=== PATIENT | female | born 1965 | race Caucasian/White ===

== ENCOUNTER 2017-05-25 16:57 | Inpatient (IN) ==
--- NOTE | 2017-05-25 17:14 | Emergency Department Note ---
Disposition Clinical Impression: Depression Qualifiers: Depression Type: unspecified Qualified Code(s): F32.9 - Major depressive disorder, single episode, unspecified Disposition: Admitted As Inpatient Psych HPI - General Chief Complaint: ED Psychiatric Symptoms Stated Complaint: SI Time Seen by Provider: 05/25/17 17:08 Source: patient Mode of arrival: ambulatory Limitations: no limitations Nursing Notes Reviewed: Yes Vital Signs Reviewed: Yes - History of Present Illness HPI Narrative: 51-year-old female who has a history depression says she's had some worsening depression over the last several weeks with suicidal ideation now. Pt complaint: suicidal ideation, feels depressed If medical clearance, reason: psychiatric condition Onset (ago): Just [employer] Duration: constant History of similar episodes: Yes Improves with: none Worsens with: none Context: significant life stressor Alleged intoxication: No Associated Psychiatric Symptoms: depression, suicidal ideation Associated symptoms: Reports: denies other symptoms Traumatic symptoms: denies traumatic injury Treatments prior to arrival: none - Related Data Home Medications Medication Instructions Recorded Confirmed Albuterol Sulfate [Proair Hfa] 2 puff IH Q4H PRN 04/13/17 05/25/17 Gabapentin [Neurontin] 600 mg PO BID PRN 04/13/17 05/25/17 Montelukast [Singulair] 10 mg PO HS 04/13/17 05/25/17 Topiramate [Topamax] 100 mg PO BID 04/13/17 05/25/17 carBAMazepine [Tegretol] 200 mg PO BID 04/13/17 05/25/17 Acetaminophen [Tylenol] 650 mg PO Q6HR PRN 05/25/17 05/25/17 BuPROPion XL (24 HR) [Wellbutrin 150 mg PO DAILY 05/25/17 05/25/17 XL] Ipratropium/Albuterol Neb [Duoneb] 3 ml IH Q6H PRN 05/25/17 05/25/17 LORazepam [Ativan] 0.5 mg PO Q6H PRN 05/25/17 05/25/17 Protivin Carbonate 150 mg PO QPM 05/25/17 05/25/17 Protivin Carbonate [Protivin 300 mg PO QAM 05/25/17 05/25/17 Carbonate] Omeprazole [PriLOSEC] 20 mg PO DAILY 05/25/17 05/25/17 Ropinirole HCl [Requip Xl] 2 mg PO HS 05/25/17 05/25/17 Trazodone HCl 100 mg PO HS 05/25/17 05/25/17 Venlafaxine HCl [Venlafaxine HCl 75 mg PO DAILY 05/25/17 05/25/17 ER] Allergies Allergy/AdvReac Type Severity Reaction Status Date / Time codeine AdvReac Nausea/Vomi Verified 05/25/17 17:01 ting All systems ED: reviewed and negative except as stated. Constitutional: Denies: fever, chills, weakness, weight change Eyes: Denies: eye pain, eye discharge, vision change ENT ED: Denies: ear pain, throat pain, dental pain, hearing loss, epistaxis, congestion, dysphagia Cardiovascular: Denies: chest pain, palpitations, dyspnea on exertion, edema, syncope Respiratory: Denies: cough, dyspnea, wheezes, hemoptysis, stridor Gastrointestinal: Denies: abdominal pain, nausea, vomiting, diarrhea, constipation, hematemesis, melena, hematochezia Genitourinary: Denies: dysuria, frequency, hematuria, discharge Musculoskeletal: Denies: back pain, neck pain, arthralgia, myalgia Integumentary: Denies: rash, abrasion, lesions Neurological: Denies: headache, weakness, numbness, paresthesias, confusion, abnormal gait, vertigo Psychiatric: Reports: depression. Denies: anxiety, suicidal thoughts, homicidal thoughts, auditory hallucinations, visual hallucinations Endocrine: Denies: fatigue Hematological/Lymphatic: Denies: easy bleeding, easy bruising Allergic/Immunologic: Denies: facial swelling, urticaria Past Medical History - Past Medical History Medical history: Reports: no medical history Psychiatric history: Reports: anxiety, depression, prior suicide attempt, previous psychiatric hospitalization - Social History Smoking Status: Never smoker Smokeless Tobacco Status: No Alcohol use: Reports: occasionally Drug use: Reports: none Physical Exam - General Limitations: no limitations General appearance: alert, in no apparent distress, anxious - Head Head exam: atraumatic, normocephalic, normal inspection - Eye Eye exam: Present: normal appearance, PERRL, EOMI - ENT ENT exam: normal exam, normal oropharynx, mucous membranes moist - Neck Neck exam: Present: normal inspection, full ROM, trachea midline - Chest Chest inspection: Present: normal inspection, symmetric chest wall rise - Respiratory Respiratory exam: Present: normal lung sounds bilaterally - Abdominal Exam Abdominal exam: Present: soft, Non-Tender. Absent: tenderness, distention, guarding, rebound, rigidity - Extremities Exam Extremities exam: Present: normal inspection, full ROM. Absent: tenderness, pedal edema - Expanded Lower Extremity Exam Neurovascular/Tendon exam: Absent: motor deficit, sensory deficit, tendon deficit - Back Exam Back exam: Present: normal inspection, full ROM. Absent: tenderness - Neurological Exam Neurological exam: Present: alert, oriented X3 - Psychiatric Psychiatric exam: Present: depressed, suicidal ideation - Skin Skin exam: Present: warm, dry, intact, normal color Course Vital Signs Temperature 97.5 F L 05/25/17 16:58 Pulse Rate 86 05/25/17 16:58 Respiratory Rate 16 05/25/17 16:58 Blood Pressure 135/72 05/25/17 16:58 O2 Sat by Pulse Oximetry 100 05/25/17 16:58 Temperature 98.3 F 05/25/17 21:00 Pulse Rate 74 05/25/17 21:00 Respiratory Rate 16 05/25/17 21:00 Blood Pressure 134/74 05/25/17 21:00 O2 Sat by Pulse Oximetry 99 05/25/17 18:27 Oxygen Delivery Oxygen Delivery Room Air Psych - Lab Data Result diagrams: 05/25/17 17:21 05/25/17 17:21 Lab Results 05/25/17 05/25/17 05/25/17 Range/Units 17:21 17:21 17:21 WBC 7.3 (4.3-11.1) K/mcL RBC 4.51 (3.82-4.97) M/mcL Hgb 13.4 (11.5-15.4) g/dL Hct 42.0 (35.3-44.9) % MCV 93.1 (83.0-100.0) fL MCH 29.7 (28.0-33.3) pg MCHC 31.9 (31.6-35.5) g/dL RDW 12.8 (11.5-14.5) % Plt Count 246 (140-400) K/mcL MPV 11.4 (9.4-12.4) fL Immature Gran % 0.7 (0-4) % Seg Neutrophils % 58.7 % Lymphocytes % 25.4 % Monocytes % 9.7 % Eosinophils % 4.4 % Basophils % 1.1 % Neutrophils # 4.3 (1.6-8.9) K/mcL Lymphocytes # 1.8 (0.6-4.6) K/mcL Monocytes # 0.7 (0.0-1.3) K/mcL Eosinophils # 0.3 (0.0-0.6) K/mcL Basophils # 0.1 (0.0-0.2) K/mcL Sodium 140 (136-145) mEq/L Potassium 3.5 (3.5-4.5) mEq/L Chloride 110 H (98-109) mEq/L Carbon Dioxide 22 (19-29) mEq/L BUN 9 (7-20) mg/dL Creatinine 0.83 (0.57-1.11) mg/dL Est GFR ( Amer) > 60 (> 60) Est GFR (Non-Af Amer) > 60 (> 60) BUN/Creatinine Ratio 11 (6-26) Glucose 84 (70-99) mg/dL Calculated Osmolality 288 (280-300) Calcium 9.0 (8.6-10.8) mg/dL Serum , Qual Negative (Negative) Urine Color (Yellow) Urine Clarity (Clear) Urine pH (5.0-8.0) pH Units Ur Specific [place] (1.010-1.025) Urine Protein (Neg-Trace) mg/dL Urine Glucose (UA) (Normal) mg/dL Urine Ketones (Negative) mg/dL Urine Blood (Negative) Urine Nitrite (Negative) Urine Bilirubin (Negative) Urine Urobilinogen (Normal) mg/dL Ur Leukocyte Esterase (Negative) Salicylates < 5.0 L (15-30) mg/dL Urine Opiates Screen (Kkztjg=108) ng/mL Acetaminophen < 1.0 L (10-30) mcg/mL Ur Barbiturates Screen (Jetkxg=031) ng/mL Ur Phencyclidine Scrn (Cutoff=25) ng/mL Ur Amphetamines Screen (Ydeeap=2459) ng/mL U Benzodiazepines Scrn (Kmebna=358) ng/mL Protivin (0.6-1.2) mEq/L Urine Cocaine Screen (Cutoff= 300) ng/mL U Marijuana (THC) Screen (Cutoff = 50) ng/mL Ethyl Alcohol < 10 (0-10) mg/dL 05/25/17 05/25/17 05/25/17 Range/Units 18:05 18:05 20:09 WBC (4.3-11.1) K/mcL RBC (3.82-4.97) M/mcL Hgb (11.5-15.4) g/dL Hct (35.3-44.9) % MCV (83.0-100.0) fL MCH (28.0-33.3) pg MCHC (31.6-35.5) g/dL RDW (11.5-14.5) % Plt Count (140-400) K/mcL MPV (9.4-12.4) fL Immature Gran % (0-4) % Seg Neutrophils % % Lymphocytes % % Monocytes % % Eosinophils % % Basophils % % Neutrophils # (1.6-8.9) K/mcL Lymphocytes # (0.6-4.6) K/mcL Monocytes # (0.0-1.3) K/mcL Eosinophils # (0.0-0.6) K/mcL Basophils # (0.0-0.2) K/mcL Sodium (136-145) mEq/L Potassium (3.5-4.5) mEq/L Chloride (98-109) mEq/L Carbon Dioxide (19-29) mEq/L BUN (7-20) mg/dL Creatinine (0.57-1.11) mg/dL Est GFR ( Amer) (> 60) Est GFR (Non-Af Amer) (> 60) BUN/Creatinine Ratio (6-26) Glucose (70-99) mg/dL Calculated Osmolality (280-300) Calcium (8.6-10.8) mg/dL Serum , Qual (Negative) Urine Color Yellow (Yellow) Urine Clarity Clear (Clear) Urine pH 7.5 (5.0-8.0) pH Units Ur Specific [place] 1.008 L (1.010-1.025) Urine Protein Negative (Neg-Trace) mg/dL Urine Glucose (UA) Normal (Normal) mg/dL Urine Ketones Negative (Negative) mg/dL Urine Blood Negative (Negative) Urine Nitrite Negative (Negative) Urine Bilirubin Negative (Negative) Urine Urobilinogen Normal (Normal) mg/dL Ur Leukocyte Esterase Negative (Negative) Salicylates (15-30) mg/dL Urine Opiates Screen Negative (Ksxxzx=559) ng/mL Acetaminophen (10-30) mcg/mL Ur Barbiturates Screen Negative (Lfnpjv=304) ng/mL Ur Phencyclidine Scrn Negative (Cutoff=25) ng/mL Ur Amphetamines Screen Negative (Vpzfol=0677) ng/mL U Benzodiazepines Scrn Negative (Yjdbkw=537) ng/mL Protivin 0.6 (0.6-1.2) mEq/L Urine Cocaine Screen Negative (Cutoff= 300) ng/mL U Marijuana (THC) Screen Negative (Cutoff = 50) ng/mL Ethyl Alcohol (0-10) mg/dL Psychiatric Medical Clearance - Medical Clearance Checklist Does the patient have a NEW psychiatric condition?: No Any abnormalities indicating possible medical illness?: No Any history of medical issues?: No Medical History: (This Medical Record has been edited. Action required.) Depression (Acute) Acute anxiety (Inactive) Depression (Inactive) Suicidal ideation (Inactive) Suicide attempt by substance overdose (Inactive) (This Medical Record has been edited. Action required.) No Social History Section defined Any abnormal vital signs prior to transfer?: No Current Vitals: Last Vital Signs Temp 98.3 F 05/25/17 21:00 Pulse 74 05/25/17 21:00 Resp 16 05/25/17 21:00 BP 134/74 05/25/17 21:00 Pulse Ox 99 05/25/17 18:27 Is the patient intoxicated or cognitively impaired?: No Psychiatric Lab Panel: Drug Levels and Toxicity 05/25/17 05/25/17 05/25/17 17:21 18:05 20:09 Urine Opiates Screen Negative Acetaminophen < 1.0 L Ur Barbiturates Screen Negative Ur Phencyclidine Scrn Negative Ur Amphetamines Screen Negative U Benzodiazepines Scrn Negative Protivin 0.6 Urine Cocaine Screen Negative U Marijuana (THC) Screen Negative Ethyl Alcohol < 10 Any abnormalities on the physical exam?: No Any abnormal labs?: No Abnormal Labs: Abnormal lab results Chloride 110 mEq/L (98-109) H 05/25/17 17:21 Ur Specific [place] 1.008 (1.010-1.025) L 05/25/17 18:05 Salicylates < 5.0 mg/dL (15-30) L 05/25/17 17:21 Acetaminophen < 1.0 mcg/mL (10-30) L 05/25/17 17:21 Does the patient require durable medical equiptment?: No Is the patient ambulatory?: Yes Is the patient a fall risk?: No Has the patient been medically cleared?: Yes Any acute medical condition require Tx prior to transfer?: No Statement of Medical Clearance: I have evaluated the patient, reviewed diagnostic information, and certify that the patient's medical condition is sufficiently stable that transfer to the psychiatric unit does not pose a significant risk of deterioration.
[2017-05-25 17:32] LABS: Basophils # 0.1 K/mcL (0.0-0.2); Basophils % 1.1 %; Eosinophils # 0.3 K/mcL (0.0-0.6); Eosinophils % 4.4 %; Hemoglobin 13.4 g/dL (11.5-15.4); Immature Granulocytes % 0.7 % (0-4); Lymphocytes # 1.8 K/mcL (0.6-4.6); Lymphocytes % 25.4 %; Mean Corpuscular HGB Conc 31.9 g/dL (31.6-35.5); Mean Corpuscular Hemoglobin 29.7 pg (28.0-33.3); Mean Corpuscular Volume 93.1 fL (83.0-100.0); Mean Platelet Volume 11.4 fL (9.4-12.4); Monocytes # 0.7 K/mcL (0.0-1.3); Monocytes % 9.7 %; Neutrophils # 4.3 K/mcL (1.6-8.9); Platelet Count 246 K/mcL (140-400); Red Blood Count 4.51 M/mcL (3.82-4.97); Red Cell Distribution Width 12.8 % (11.5-14.5); Segmented Neutrophils % 58.7 %
[2017-05-25 17:48] LABS: BUN/Creatinine Ratio 11 (6-26); Blood Urea Nitrogen 9 mg/dL (7-20); Carbon Dioxide 22 mEq/L (19-29); Chloride 110 mEq/L (98-109); Glucose 84 mg/dL (70-99); Osmolality,Calculated 288 (280-300); Potassium 3.5 mEq/L (3.5-4.5); Sodium 140 mEq/L (136-145); eGFR For African Americans > 60 (> 60); eGFR For Non-African Americans > 60 (> 60)
[2017-05-25 17:49] LABS: Acetaminophen < 1.0 mcg/mL (10-30); Ethanol < 10 mg/dL (0-10)
[2017-05-25 17:50] LABS: Salicylate < 5.0 mg/dL (15-30)
[2017-05-25 18:34] LABS: Bilirubin,Urine Negative (Negative); Blood,Urine Negative (Negative); Clarity,Urine Clear (Clear); Color,Urine Yellow (Yellow); Glucose,Urine (UA) Normal (Normal); Ketones,Urine Negative (Negative); Leukocyte Esterase,Urine Negative (Negative); Nitrite,Urine Negative (Negative); PH,Urine 7.5 pH Units (5.0-8.0); Protein,Urine Negative (Neg-Trace); Specific Gravity,Urine 1.008 (1.010-1.025); Urobilinogen,Urine Normal (Normal)
[2017-05-25 18:40] LABS: Amphetamine Screen,Urine Negative ng/mL (Cutoff=1000); Barbiturate Screen,Urine Negative ng/mL (Cutoff=200); Benzodiazepines Screen,Urine Negative ng/mL (Cutoff=200); Cannabinoid Screen,Urine Negative ng/mL (Cutoff = 50); Cocaine Screen,Urine Negative ng/mL (Cutoff= 300); Opiate Screen,Urine Negative ng/mL (Cutoff=300); Phencyclidine Screen,Urine Negative ng/mL (Cutoff=25)
[2017-05-25] MEDS ORDERED: Ipratropium/Albuterol Neb 3 ML IH PRN (20:35)
[2017-05-25] MEDS ORDERED: Gabapentin 300 MG CAPSULE PO PRN (20:35)
[2017-05-25] MEDS ORDERED: Mag Hydrox/Al Hydrox/Simeth 30 ML UDC PO PRN (20:38)
[2017-05-25] MEDS ORDERED: traZODone 50 MG TABLET PO PRN (20:38)
[2017-05-25] MEDS ORDERED: *HR* LORazepam 1 MG TABLET PO PRN (20:38)
[2017-05-25] MEDS ORDERED: Acetaminophen 325 MG TABLET PO PRN (20:38)
[2017-05-25] MEDS ORDERED: MOM Conc 10 ML UD.LIQ PO PRN (20:38)
[2017-05-25] MEDS ORDERED: Haloperidol Lactate 5 MG/ML VIAL IM PRN (20:38)
[2017-05-25] MEDS ORDERED: *HR* LORazepam 2 MG/ML VIAL IM PRN (20:38)
[2017-05-25] MEDS ORDERED: Lithium Oral Soln 300 MG/5 ML UDC PO SCH (20:45)
[2017-05-25] MEDS: traZODone 50 MG TABLET PO SCH (21:54)
[2017-05-25] MEDS: carBAMazepine 200 MG TABLET PO SCH (21:54)
[2017-05-25] MEDS: Topiramate 100 MG TABLET PO SCH (21:54)
[2017-05-25] MEDS: REQUIP 2 MG PO SCH (21:56)
[2017-05-25] MEDS: *HR* LORazepam 0.5 MG TABLET PO PRN (23:29)
[2017-05-26] MEDS: Lithium Carbonate 300 MG CAPSULE PO SCH (08:28)
[2017-05-26] MEDS: Venlafaxine XR (24 HR) 75 MG CAP.ER.24H PO SCH (08:28)
[2017-05-26] MEDS: Topiramate 100 MG TABLET PO SCH ×2 (08:28→20:28)
[2017-05-26] MEDS: BuPROPion XL (24 HR) 150 MG TABLET PO SCH (08:28)
[2017-05-26] MEDS: carBAMazepine 200 MG TABLET PO SCH ×2 (08:29→20:27)
--- NOTE | 2017-05-26 10:35 | Psychiatry History & Physical ---
Date of Encounter: 05/26/17 Time of Encounter: 09:45 History of Present Illness Patient Stated Chief Complaint: Suicidal ideation Medicare Admission Attestation: For traditional Medicare patients the provided hospital inpatient services are reasonable and necessary and in the case of services not specified as inpatient -only under 42 CFR 419.22 (n), that they are appropriately provided as inpatient services in accordance 42 CFR 412.3. For Critical Access Hospital the patient may reasonably be expected to be discharged or transferred to a hospital within 96 hours after admission to the Critical Access Hospital. Admitted From: Emergency Dept History of Present Illness: Ms. Barraza is a 51 year old female admitted from the emergency department for suicidal ideation with plans to crash her car into a tree. Patient had long history of depression and treatment. Most recently patient was evaluated on and placed in [facility], her medication were changed their, Wellbutrin was added, Effexor dose was reduced and lithium was added. [place] level checked therapeutic at 0.6. Patient also is taken Topamax and carbamazepine by neurology for treatment of headache. She has surgery in 2004 for Meniere disease and problems with balance. Patient reports increased sleep , low energy, no motivation, anhedonia and suicidal ideation. She is treated at [facility] and compliant with appointment for counseling and medication management. Past Med Surg Social Fam HX - Past Medical History Medical history: no medical history - Past Psychiatric History Psychiatric history: Reports: depression, prior suicide attempt, previous psychiatric hospitalization - Past Surgical History Surgical History: cholecystectomy - Social History Smoking Status: Never smoker Smokeless Tobacco Status: No Alcohol use: occasionally Drug use: none Medications & Allergies Albuterol Sulfate [Proair Hfa] 2 puff IH Q4H PRN 04/13/17 [History] Gabapentin [Neurontin] 600 mg PO BID PRN 04/13/17 [History] Montelukast [Singulair] 10 mg PO HS 04/13/17 [History] Topiramate [Topamax] 100 mg PO BID 04/13/17 [History] carBAMazepine [Tegretol] 200 mg PO BID 04/13/17 [History] Acetaminophen [Tylenol] 650 mg PO Q6HR PRN 05/25/17 [History] BuPROPion XL (24 HR) [Wellbutrin XL] 150 mg PO DAILY 05/25/17 [History] Ipratropium/Albuterol Neb [Duoneb] 3 ml IH Q6H PRN 05/25/17 [History] LORazepam [Ativan] 0.5 mg PO Q6H PRN 05/25/17 [History] [place] Carbonate 150 mg PO QPM 05/25/17 [History] [place] Carbonate [[place] Carbonate] 300 mg PO QAM 05/25/17 [History] Omeprazole [PriLOSEC] 20 mg PO DAILY 05/25/17 [History] Ropinirole HCl [Requip Xl] 2 mg PO HS 05/25/17 [History] Trazodone HCl 100 mg PO HS 05/25/17 [History] Venlafaxine HCl [Venlafaxine HCl ER] 75 mg PO DAILY 05/25/17 [History] 3 Allergy/AdvReac Type Severity Reaction Status Date / Time codeine AdvReac Nausea/Vomi Verified 05/25/17 17:01 liz Review of Systems Psychiatric: Reports: depression, anxiety, abnormal sleep pattern, suicidal ideation, anhedonia Mental Status Exam Patient orientation: Yes Person, Yes Time, Yes Place Level of alertness: Alert Patient appearance: Appropriate, Well Groomed, Obese Behavior: calm, cooperative Psychomotor activity: Normal Eye contact: Maintains Eye Contact Mood description: Euthymic/stable, Depressed, Labile Affect description: congruent with mood, labile Speech pattern: Normal rate, Normal rhythm, Normal tone, Appropriate Speech volume: Normal Thought process: Linear, Goal Oriented Thought content: Yes Suicidal ideation, No Homicidal ideation, No Overt delusions Perceptual disturbances: No Auditory hallucinations, No Visual hallucinations Attention span: Capable of Focused Attention Memory description: Grossly Intact Patient reliability: Reliable Historian Intelligence estimate: Average Judgment: Limited Insight: Partial Results - Vital Signs Vital signs: Temp Pulse Resp BP Pulse Ox 97.8 F 69 18 109/63 99 05/26/17 09:00 05/26/17 09:00 05/26/17 09:00 05/26/17 09:00 05/25/17 18:27 - Labs Labs: Laboratory Last Values WBC 7.3 K/mcL (4.3-11.1) 05/25/17 17:21 RBC 4.51 M/mcL (3.82-4.97) 05/25/17 17:21 Hgb 13.4 g/dL (11.5-15.4) 05/25/17 17:21 Hct 42.0 % (35.3-44.9) 05/25/17 17:21 MCV 93.1 fL (83.0-100.0) 05/25/17 17:21 MCH 29.7 pg (28.0-33.3) 05/25/17 17:21 MCHC 31.9 g/dL (31.6-35.5) 05/25/17 17:21 RDW 12.8 % (11.5-14.5) 05/25/17 17:21 Plt Count 246 K/mcL (140-400) 05/25/17 17:21 MPV 11.4 fL (9.4-12.4) 05/25/17 17:21 Immature Gran % 0.7 % (0-4) 05/25/17 17: Seg Neutrophils % 58.7 % 05/25/17 17:21 Lymphocytes % 25.4 % 05/25/17 17:21 Monocytes % 9.7 % 05/25/17 17:21 Eosinophils % 4.4 % 05/25/17 17:21 Basophils % 1.1 % 05/25/17 17:21 Neutrophils # 4.3 K/mcL (1.6-8.9) 05/25/17 17:21 Lymphocytes # 1.8 K/mcL (0.6-4.6) 05/25/17 17:21 Monocytes # 0.7 K/mcL (0.0-1.3) 05/25/17 17:21 Eosinophils # 0.3 K/mcL (0.0-0.6) 05/25/17 17:21 Basophils # 0.1 K/mcL (0.0-0.2) 05/25/17 17:21 Sodium 140 mEq/L (136-145) 05/25/17 17:21 Potassium 3.5 mEq/L (3.5-4.5) 05/25/17 17:21 Chloride 110 mEq/L (98-109) H 05/25/17 17:21 Carbon Dioxide 22 mEq/L (19-29) 05/25/17 17:21 BUN 9 mg/dL (7-20) 05/25/17 17:21 Creatinine 0.83 mg/dL (0.57-1.11) 05/25/17 17:21 Est GFR ( Amer) > 60 (> 60) 05/25/17 17:21 Est GFR (Non-Af Amer) > 60 (> 60) 05/25/17 17:21 BUN/Creatinine Ratio 11 (6-26) 05/25/17 17:21 Glucose 84 mg/dL (70-99) 05/25/17 17:21 Calculated Osmolality 288 (280-300) 05/25/17 17:21 Calcium 9.0 mg/dL (8.6-10.8) 05/25/17 17:21 Serum , Qual Negative (Negative) 05/25/17 17:21 Urine Color Yellow (Yellow) 05/25/17 18:05 Urine Clarity Clear (Clear) 05/25/17 18:05 Urine pH 7.5 pH Units (5.0-8.0) 05/25/17 18:05 Ur Specific [place] 1.008 (1.010-1.025) L 05/25/17 18:05 Urine Protein Negative mg/dL (Neg-Trace) 05/25/17 18:05 Urine Glucose (UA) Normal mg/dL (Normal) 05/25/17 18:05 Urine Ketones Negative mg/dL (Negative) 05/25/17 18:05 Urine Blood Negative (Negative) 05/25/17 18:05 Urine Nitrite Negative (Negative) 05/25/17 18:05 Urine Bilirubin Negative (Negative) 05/25/17 18:05 Urine Urobilinogen Normal mg/dL (Normal) 05/25/17 18:05 Ur Leukocyte Esterase Negative (Negative) 05/25/17 18:05 Salicylates < 5.0 mg/dL (15-30) L 05/25/17 17:21 Urine Opiates Screen Negative ng/mL (Fjfxwm=852) 05/25/17 18:05 Acetaminophen < 1.0 mcg/mL (10-30) L 05/25/17 17:21 Ur Barbiturates Screen Negative ng/mL ([place]=039) 05/25/17 18:05 Ur Phencyclidine Scrn Negative ng/mL (Cutoff=25) 05/25/17 18:05 Ur Amphetamines Screen Negative ng/mL (Tpbdxc=5573) 05/25/17 18:05 U Benzodiazepines Scrn Negative ng/mL (Fdlcsd=056) 05/25/17 18:05 [place] 0.6 mEq/L (0.6-1.2) 05/25/17 20:09 Urine Cocaine Screen Negative ng/mL (Cutoff= 300) 05/25/17 18:05 U Marijuana (THC) Screen Negative ng/mL (Cutoff = 50) 05/25/17 18:05 Ethyl Alcohol < 10 mg/dL (0-10) 05/25/17 17:21 Assessment and Plan (1) Depression Current visit: Yes Status: Acute Plan: Admit inpatient for safety and stabilization, Close observation, Suicide Precautions per unit protocol, Encourage participation in unit milieu, Group Therapy, Monitor sleep, Monitor appetite Additional Plan: Discontinue trazodone. Check Tegretol level in a.m. Qualifiers: Depression Type: major depressive disorder Major depression recurrence: recurrent Active/Remission status: currently active Major depression episode severity: severe Psychotic features: without psychotic features Qualified Code(s): F33.2 - Major depressive disorder, recurrent severe without psychotic features
[2017-05-26] MEDS: traZODone 50 MG TABLET PO SCH (20:27)
[2017-05-26] MEDS: REQUIP 2 MG PO SCH (20:30)
[2017-05-26] MEDS: Lithium Oral Soln 300 MG/5 ML UDC PO SCH (20:39)
[2017-05-27] MEDS: BuPROPion XL (24 HR) 150 MG TABLET PO SCH (08:32)
[2017-05-27] MEDS: Venlafaxine XR (24 HR) 75 MG CAP.ER.24H PO SCH (08:32)
[2017-05-27] MEDS: Topiramate 100 MG TABLET PO SCH ×2 (08:32→21:14)
[2017-05-27] MEDS: carBAMazepine 200 MG TABLET PO SCH ×2 (08:33→21:14)
[2017-05-27] MEDS: Lithium Carbonate 300 MG CAPSULE PO SCH (08:33)
[2017-05-27] MEDS ORDERED: Lithium Carbonate 300 MG CAPSULE PO SCH (13:03)
--- NOTE | 2017-05-27 13:24 | Psychiatry Progress Note ---
Date of Encounter: 05/27/17 Time of Encounter: 13:15 Subjective Interval history: Patient seen for follow-up. Treatment history was reviewed with patient. She reports sleeping less and more alert and active. She participated in groups. She told me she had a history of gambling addiction. She denies active suicidal ideation. She was educated about MOOD disorders and medication. Review of Systems Psychiatric: Reports: depression, anxiety, abnormal sleep pattern, suicidal ideation, anhedonia Objective: Exam Patient orientation: Yes Person, Yes Time, Yes Place Level of alertness: Alert Patient appearance: Appropriate, Well Groomed Behavior: calm, cooperative, anxious Psychomotor activity: Normal Eye contact: Maintains Eye Contact Mood description: Euthymic/stable, Depressed, Labile Affect description: congruent with mood, labile Speech pattern: Normal rate, Normal rhythm, Normal tone Speech volume: Normal Thought process: Linear, Goal Oriented Thought content: No Suicidal ideation, No Homicidal ideation, No Overt delusions Perceptual disturbances: No Auditory hallucinations, No Visual hallucinations Judgment: Fair Insight: Partial Results - Vital Signs Vital Signs: Temp Pulse Resp BP Pulse Ox 97.3 F L 88 16 115/57 99 05/27/17 09:00 05/27/17 09:00 05/27/17 09:00 05/27/17 09:00 05/25/17 18:27 - Drug Levels and Toxicology Drug Levels and Toxicology: Drug Levels and Toxicity 05/27/17 10:07 Carbamazepine 5.7 - Labs Labs: Laboratory Results - last 24 hr 05/27/17 10:07 Carbamazepine 5.7 Assessment and Plan (1) Depression Current visit: Yes Status: Acute Plan: Continue hospitalization, Close observation, Suicide Precautions per unit protocol, Encourage participation in unit milieu, Group Therapy, Monitor sleep, Monitor appetite Additional Plan: will discontinue lithium Qualifiers: Depression Type: major depressive disorder Major depression recurrence: recurrent Active/Remission status: currently active Major depression episode severity: severe Psychotic features: without psychotic features Qualified Code(s): F33.2 - Major depressive disorder, recurrent severe without psychotic features Consult Discharge Plan - Plan Referrals: [facility], [facility] [Other] (You will see Mildred Stinson for primary health care and medication management services on You will see Odalys Orellana for outpatient psychiatric assessment and medication management services on 07/28/2017 at 10:00am. You are on the cancellation list to be seen sooner. Office staff expect to be able to move your appointment up, and will contact you when they are able to do so.) [facility] [Outside] - 06/03/17 11:00 am (The above appointment is with Anyi Aguirre, PhD, for outpatient mental health counseling services. You will also see Odalys Orellana for outpatient psychiatric assessment and medication management services on 06/15/2017 at 9:00 AM in the same office.)
[2017-05-27] MEDS: REQUIP 2 MG PO SCH (18:49)
[2017-05-27] MEDS: Lithium Oral Soln 300 MG/5 ML UDC PO SCH (21:13)
[2017-05-28] MEDS: carBAMazepine 200 MG TABLET PO SCH (09:19)
[2017-05-28] MEDS: BuPROPion XL (24 HR) 150 MG TABLET PO SCH (09:19)
[2017-05-28] MEDS: Topiramate 100 MG TABLET PO SCH (09:20)
[2017-05-28] MEDS: Venlafaxine XR (24 HR) 75 MG CAP.ER.24H PO SCH (09:20)
[2017-05-28 10:03] VITALS: BP 120/78
[2017-05-28] MEDS: *HR* LORazepam 0.5 MG TABLET PO PRN (12:17)
--- NOTE | 2017-05-28 12:57 | Discharge Summary ---
Date of Encounter: 05/28/17 Time of Encounter: 11:55 Diagnosis - Discharge Diagnosis (1) MDD (major depressive disorder), recurrent severe, without psychosis Priority: Primary Status: Acute Medications - Discharge Medications LORazepam [Ativan] 0.5 mg PO Q6H PRN 05/25/17 [History] Albuterol Sulfate [Albuterol Inhaler] 2 puff IH Q4H PRN inhaler 05/28/17 [Rx] BuPROPion XL (24 HR) [Wellbutrin Xl] 150 mg PO DAILY tab.er.24h 05/28/17 [Rx] Gabapentin [Neurontin] 600 mg PO BID PRN capsule 05/28/17 [Rx] Ipratropium/Albuterol Neb [Duoneb] 3 ml IH Q6H PRN inhsol 05/28/17 [Rx] Montelukast [Singulair] 10 mg PO HS tablet 05/28/17 [Rx] Omeprazole [PriLOSEC] 20 mg PO 0630 capsule. 05/28/17 [Rx] Topiramate [Topamax] 100 mg PO BID tablet 05/28/17 [Rx] Venlafaxine XR (24 HR) [Effexor XR] 75 mg PO DAILY cap.er.24h 05/28/17 [Rx] carBAMazepine [Tegretol] 200 mg PO BID tablet 05/28/17 [Rx] 3 Allergy/AdvReac Type Severity Reaction Status Date / Time codeine AdvReac Nausea/Vomi Verified 05/25/17 17:01 ting Results Procedures and tests throughout hospitalization: Completed Lab Orders Category Date Time Status Carbamazepine (Tegretol) AM 0400 Lab 05/27/17 10:07 Completed Provider Date of admission: 05/25/17 20:31 Primary care physician: PCP NONE Consults: 05/25/17 21:33 Consult to Pastoral Services [CONS] Routine Comment: Discharging clinician: Shanda Kim Assessment and Plan - Patient/Caregiver Discharge Instructions Activity: resume usual activities as tolerated Diet: regular diet - Follow up Plan Follow up with: [facility] [Other] (You will see Mildred Stinson for primary health care and medication management services on You will see Odalys Orellana for outpatient psychiatric assessment and medication management services on 07/28/2017 at 10:00am. You are on the cancellation list to be seen sooner. Office staff expect to be able to move your appointment up, and will contact you when they are able to do so.) [facility] [Outside] - 06/03/17 11:00 am (The above appointment is with Anyi Aguirre, PhD, for outpatient mental health counseling services. You will also see Odalys Orellana for outpatient psychiatric assessment and medication management services on 06/15/2017 at 9:00 AM in the same office.) Overall status at discharge: Stable Disposition: Home, Self-Care Hospital Course Hospital course: Ms. Barraza is a 51 year old female who was referred for hospitalization for depression and hopelessness helplessness and suicidal ideations. After admitting the patient and explained that his benefits side effects alternative treatment consequences of no treatment and getting informed consent from the patient patient was treated with Effexor Wellbutrin Tegretol Neurontin for her depression and mood stabilization and anxiety. Her lithium was tapered and discontinued. Patient was encouraged to attend and participate in groups and activities on the unit which included supportive therapy psychoeducational cognitive restructuring stress management groups etc. Patient started to notice improvement in her mood. Suicidal ideation subsided. She was able to verbalize a safety plan. She was future oriented and denies any psychotic manic or depressive symptoms on discharge. Overall her discharge condition was stable. Time spent discussing smoking cessation with patient: 3 to 10 minutes Does patient wish to continue nicotine replacement upon disc: No - Time Spent with Patient Total time spent providing and/or coordinating discharge services: Less than 30 minutes Quality - Multiple Antipsychotics Patient discharged on 2 or more antipsychotic medications: No Procedures - Procedures Procedures: Medication Management, Crisis Stabilization, Supportive Therapy, Group Therapy, Psychoeducational Therapy Mental Status Exam - Mental Status Exam Patient orientation: Yes Person, Yes Time, Yes Place Level of alertness: Alert Patient appearance: Appropriate, Well Groomed Behavior: calm, cooperative Psychomotor activity: Normal Eye contact: Maintains Eye Contact Mood description: Euthymic/stable Affect description: congruent with mood, full range Speech pattern: Normal rate, Normal rhythm, Normal tone Speech Volume: Normal Thought process: Linear, Goal Oriented Thought Content: No Suicidal ideation, No Homicidal ideation, No Overt delusions Perceptual Disturbances: No Auditory hallucinations, No Visual hallucinations Judgment: Limited Insight: Partial
[2017-05-28] MEDS ORDERED: Patient Taking Own Medication 1 EACH PO SCH (18:00)
== END 2017-05-28 15:02 | disposition home or self-care (01) | DRG 885 ==
LOC: EMEROO 16:57 → SUATTDRO 20:31 → 1ANU 20:31
PROVIDERS: ADMIT Psychiatry & Neurology Psychiatry; ATTEND Psychiatry & Neurology Psychiatry

== ENCOUNTER 2018-12-15 04:00 | Inpatient (IN) ==
[2018-12-15] MEDS ORDERED: *HR* LORazepam 1 MG TABLET PO PRN (04:11)
[2018-12-15] MEDS ORDERED: Haloperidol Lactate 5 MG/ML VIAL IM PRN (04:11)
[2018-12-15] MEDS ORDERED: Mag Hydrox/Al Hydrox/Simeth 30 ML UDC PO PRN (04:11)
[2018-12-15] MEDS ORDERED: *HR* LORazepam 2 MG/ML VIAL IM PRN (04:11)
[2018-12-15] MEDS ORDERED: MOM Conc 10 ML UD.LIQ PO PRN (04:11)
[2018-12-15] MEDS: Acetaminophen 325 MG TABLET PO PRN ×3 (09:19→21:09)
--- NOTE | 2018-12-15 10:29 | Psychiatry History & Physical ---
Date of Encounter: 12/15/18 Time of Encounter: 10:14 History of Present Illness Patient Stated Chief Complaint: suicidal ideation/psychosis Medicare Admission Attestation: For traditional Medicare patients the provided hospital inpatient services are reasonable and necessary and in the case of services not specified as inpatient-only under 42 CFR 419.22 (n), that they are appropriately provided as inpatient services in accordance 42 CFR 412.3. For Critical Access Hospital the patient may reasonably be expected to be discharged or transferred to a hospital within 96 hours after admission to the Critical Access Hospital. Admitted From: Home Plans for Post Hospital Care: Home History of Present Illness: Ms. Barraza is a 53 year old female who was admitted secondary to command hallucinations telling her to harm herself. Client states she started hearing voices (her own voice) after her mother in 2017. She reports the voice comes and goes and that there is no specific trigger. This time client reports the voice started up again approximately three weeks ago. Client states she was hospitalized in [place] and started on Loxapine for this voice. Client states the medication helped and that her outpatient psychiatrist tapered her off of it three months ago to see if she would do well off of it. Client wants to restart an antipsychotic now that the voice has returned. Client reports three prior hospitalizations, all since 2017. Three suicide attempts via overdose. One attempt was as a teenager but the other two have been since 2017. Client is linked with [facility] for outpatient care. Physically she is treated for Asthma and Menieres Disease. NKDA but opiates give her nausea. Client states mental illness runs in her family and that her father was hospitalized multiple times for suicide attempts. She is unaware of any completed suicides in family members. Client denies any AOD use beyond occasional alcohol. Client takes Effexor and Wellbutrin for depression. Willing to take a different antipsychotic since [place] does not stock Loxapine. Since client responds to older agents will try something like Trilafon to start. Discussed risks and benefits and client is agreeable. Client does not appear outwardly psychotic. Thoughts are organized and linear. No responding to IS. Subjective symptoms may be related to characterological issues and depression more than a thought disorder. Client states she has been diagnosed with Schizophrenia but doubt this is an accurate diagnosis at this time. Past Med Surg Social Fam HX - Past Medical History Medical history: asthma, GERD - Past Psychiatric History Psychiatric history: Reports: depression, prior suicide attempt, schizophrenia, previous psychiatric hospitalization Family psychiatric history: Yes Family Psychiatric History Details: father hospitalized multiple times Family History of Suicide: Attempted Family Suicide History Details: father - Social History Smoking Status: Never smoker Smokeless Tobacco Status: No Alcohol use: none Drug use: none Medications & Allergies Allergy/AdvReac Type Severity Reaction Status Date / Time No Known Allergies Allergy Verified 12/15/18 04:10 Review of Systems Constitutional: Denies: fever, chills, weakness, weight change Eyes: Denies: eye pain, vision change Ears, Nose, Throat: Denies: ear pain, throat pain, dental pain, hearing loss, congestion Cardiovascular: Denies: chest pain, palpitations, dyspnea on exertion Respiratory: Denies: cough, dyspnea, wheezes Gastrointestinal: Denies: abdominal pain, nausea, vomiting, diarrhea, constipation Genitourinary female: Denies: urgency, dysuria, frequency, abnormal menses, dyspareunia Musculoskeletal: Denies: joint swelling, joint pain Integumentary: Denies: rash, lesions, pruritus Neurological: Denies: headache, weakness, numbness, memory loss Endocrine: Denies: fatigue, heat or cold intolerance Hematologic/Lymphatic: Denies: easy bruising, lymphadenopathy Allergic/Immunologic: Denies: urticaria, itchy eyes Exam - HEENT Head exam IM: Present: atraumatic Eye exam IM: Present: EOMI, normal appearance, PERRL ENT exam IM: Present: normal exam - Neurological Neurological exam: Present: CN II-XII intact - Respiratory Respiratory exam IM: Present: CTAB - GI/Abdominal GI/Abdominal exam IM: Present: normal bowel sounds, soft. Absent: tenderness - Extremities Extremities exam IM: Present: full ROM - Skin Skin exam IM: Present: dry, warm - Constitutional Vitals: Temp Pulse Resp BP Pulse Ox 98.2 F 85 16 120/81 97 12/15/18 09:00 12/15/18 09:00 12/15/18 09:00 12/15/18 09:00 12/15/18 09:00 General appearance: age & developmentally appropriate, well-groomed, well-nourished - Musculoskeletal Gait: normal Station: relaxed Strength & Tone: normal for patient - Psychiatric Patient Orientation: Yes Person, Yes Time, Yes Place Level of alertness: Alert Behavior: calm, cooperative Psychomotor activity: Normal Eye Contact: Maintains Eye Contact Mood Description: Depressed Affect description: congruent with mood Speech Volume: Normal Speech pattern: normal rate, normal rhythm, normal tone, fluent, spontaneous Language & Vocabulary: consistent with education Thought Process: Linear Thought Content: Yes Suicidal ideation, No Homicidal ideation, No Overt delusions Perceptual Disturbances: No Reacting to internal stimuli, Yes Auditory hallucinations, No Visual hallucinations Attention Span Ability: Capable of Focused Attention Memory Description: Grossly Intact Patient Reliability: Reliable Historian Fund of knowledge: Yes abstraction ability, Yes average, Yes aware of current events Intelligence Estimate: Average Judgment: Fair Insight: Partial Assessment and Plan (1) Major depression Current visit: Yes Status: Acute Plan: Admit inpatient for safety and stabilization, Close observation, Suicide Precautions per unit protocol, Encourage participation in unit milieu, Group Therapy, Monitor sleep, Monitor appetite Risks, benefits, side effects, alternatives discussed w/pt: Yes Patient agreeable to treatment: Yes Plans for Post Hospital Care: Home Estimated Length of Stay (Days): 4 Qualifiers: Major depression recurrence: recurrent Active/Remission status: currently active Major depression episode severity: severe Psychotic features: with psychotic features Qualified Code(s): F33.3 - Major depressive disorder, recurrent, severe with psychotic symptoms
[2018-12-15] MEDS ORDERED: *HR* LORazepam 0.5 MG TABLET PO PRN (16:47)
[2018-12-15] MEDS ORDERED: Albuterol 2.5 MG/3 ML NEBULIZER IH PRN (16:47)
[2018-12-15] MEDS: BuPROPion XL (24 HR) 150 MG TABLET PO SCH (18:03)
[2018-12-15] MEDS: rOPINIRole 1 MG TABLET PO SCH (18:03)
[2018-12-15] MEDS: predniSONE 10 MG TABLET PO SCH (18:03)
[2018-12-15] MEDS: Topiramate 100 MG TABLET PO SCH (18:03)
[2018-12-15] MEDS: Venlafaxine XR (24 HR) 75 MG CAP.ER.24H PO SCH (18:04)
[2018-12-15] MEDS ORDERED: DUPILUMAB 300 MG/2 ML PO SCH (20:00)
[2018-12-15] MEDS: Perphenazine 8 MG TABLET PO SCH (22:47)
[2018-12-15] MEDS: carBAMazepine 200 MG TABLET PO SCH (22:47)
[2018-12-15] MEDS: hydrOXYzine pamoate 25 MG CAPSULE PO PRN (22:52)
[2018-12-15] MEDS: traZODone 50 MG TABLET PO PRN (22:52)
[2018-12-16] MEDS ORDERED: (Tiotropium Bromide [Spiriva Respimat] 2 PUFF) PO SCH (09:00)
[2018-12-16] MEDS: Topiramate 100 MG TABLET PO SCH ×2 (09:59→18:54)
[2018-12-16] MEDS: carBAMazepine 200 MG TABLET PO SCH ×2 (09:59→21:55)
[2018-12-16] MEDS: BuPROPion XL (24 HR) 150 MG TABLET PO SCH (10:00)
--- NOTE | 2018-12-16 13:34 | Psychiatry Progress Note ---
Date of Encounter: 12/16/18 Time of Encounter: 13:20 Subjective Interval history: Pt states she is feeling "okay". She has had a mild headache that seems to be resolving. She is trying to figure out what caused her recent mood episode and hearing the voices. She is wondering if it might have been the change in her asthma medications. She is eating fine. She denies any thoughts of suicide. She was given a new medications last evening and denies any awareness of side effects. (except the possible mild headache she is experiencing at this moment.) She is still feeling a little anxious and depressed, but it's improving. Results - Vital Signs Vital Signs: Temp Pulse Resp BP Pulse Ox 96.5 F L 97 18 110/69 96 12/16/18 09:00 12/16/18 09:00 12/16/18 09:00 12/16/18 09:00 12/16/18 09:00 Assessment and Plan (1) Major depression Current visit: Yes Status: Acute Plan: Continue hospitalization, Close observation, Suicide Precautions per unit protocol Risks, benefits, side effects, alternatives discussed w/pt: Yes Patient agreeable to treatment: Yes (Continue low dose Perphenazine as recently started) Qualifiers: Major depression recurrence: recurrent Active/Remission status: currently active Major depression episode severity: severe Psychotic features: with psychotic features Qualified Code(s): F33.3 - Major depressive disorder, recurrent, severe with psychotic symptoms Consult Discharge Plan - Plan Referrals: [facility] [Outside] - 12/19/18 3:00 pm (You have an appointment scheduled with Anyi on Wednesday, December 19, 2018 at 3:00 PM for Counseling and Case Management. You have an appointment scheduled for Tuesday, January 01, 2019 at 10:[address] Jesus Rousseau for medication management. Please contact the office at least 24 hours in advance if you are unable to keep your appointment(s). ) Psychiatry Exam - Constitutional Vitals: Temp Pulse Resp BP Pulse Ox 96.5 F L 97 18 110/69 96 12/16/18 09:00 12/16/18 09:00 12/16/18 09:00 12/16/18 09:00 12/16/18 09:00 General appearance: age & developmentally appropriate, well-groomed Additional observations: Patient is lying in bed as she has a headache and is wanting to rest. - Musculoskeletal Station: relaxed - Psychiatric Patient Orientation: Yes Person, Yes Time, Yes Place, Yes Circumstance Level of alertness: Follows commands Behavior: anxious Psychomotor activity: Normal Eye Contact: Maintains Eye Contact Mood Description: Depressed, Anxious Affect description: congruent with mood Speech Volume: Normal Speech pattern: normal rate, normal rhythm, normal tone, fluent Language & Vocabulary: consistent with education Thought Process: Intact, Logical, Linear Thought Content: Yes Suicidal ideation (resolving) Attention Span Ability: Capable of Focused Attention Memory Description: Grossly Intact Patient Reliability: Reliable Historian Fund of knowledge: Yes abstraction ability Intelligence Estimate: Average Judgment: Good Insight: Full
[2018-12-16] MEDS: Venlafaxine XR (24 HR) 75 MG CAP.ER.24H PO SCH (18:53)
[2018-12-16] MEDS: rOPINIRole 1 MG TABLET PO SCH (18:54)
[2018-12-16] MEDS: predniSONE 10 MG TABLET PO SCH (18:54)
[2018-12-16] MEDS: hydrOXYzine pamoate 25 MG CAPSULE PO PRN (21:55)
[2018-12-16] MEDS: Perphenazine 8 MG TABLET PO SCH (21:55)
[2018-12-16] MEDS: traZODone 50 MG TABLET PO PRN (21:55)
[2018-12-17] MEDS: Topiramate 100 MG TABLET PO SCH (09:33)
[2018-12-17] MEDS: carBAMazepine 200 MG TABLET PO SCH (09:33)
[2018-12-17] MEDS: BuPROPion XL (24 HR) 150 MG TABLET PO SCH (09:33)
--- NOTE | 2018-12-17 09:41 | Discharge Summary ---
Date of Encounter: 12/17/18 Time of Encounter: 09:10 Diagnosis - Discharge Diagnosis (1) Major depression Status: Acute Qualifiers: Major depression recurrence: recurrent Active/Remission status: currently active Major depression episode severity: severe Psychotic features: with psychotic features Medications - Discharge Medications Prescriptions: Perphenazine [Trilafon] 8 mg PO HS 30 Days #30 tablet Albuterol Neb [Proventil Neb] 2.5 mg IH TID PRN 12/15/18 [History] Albuterol Sulfate [Ventolin Hfa] 2 puff PO Q6H PRN 12/15/18 [History] Bupropion HCl [Wellbutrin Xl] 300 mg PO DAILY 12/15/18 [History] Dupilumab [Dupixent] 300 mg PO Q2W 12/15/18 [History] LORazepam [Ativan] 0.5 mg PO TID PRN 12/15/18 [History] Omeprazole [PriLOSEC] 40 mg PO DAILY 12/15/18 [History] Ropinirole HCl [Requip] 2 mg PO QPM 12/15/18 [History] Tiotropium [place] [Spiriva Respimat] 2 puff PO DAILY 12/15/18 [History] Topiramate [Topamax] 50 mg PO QAM 12/15/18 [History] Topiramate [Topamax] 200 mg PO QPM 12/15/18 [History] Venlafaxine HCl [Venlafaxine HCl ER] 150 mg PO QPM 12/15/18 [History] carBAMazepine [Tegretol] 200 mg PO BID 12/15/18 [History] predniSONE [PredniSONE] 10 mg PO QPM 12/15/18 [History] Perphenazine [Trilafon] 8 mg PO HS 30 Days #30 tablet 12/17/18 [Rx] Allergy/AdvReac Type Severity Reaction Status Date / Time No Known Allergies Allergy Verified 12/15/18 04:10 Provider Date of admission: 12/15/18 04:00 Psychiatry Exam - Constitutional Vitals: Temp Pulse Resp BP Pulse Ox 97.9 F 68 18 96/63 99 12/16/18 21:00 12/16/18 21:00 12/16/18 21:00 12/16/18 21:00 12/16/18 21:00 General appearance: age & developmentally appropriate, well-groomed, well- nourished - Musculoskeletal Gait: normal Station: relaxed Strength & Tone: normal for patient - Psychiatric Patient Orientation: Yes Person, Yes Time, Yes Place, Yes Circumstance Level of alertness: Alert Behavior: calm, cooperative Psychomotor activity: Normal Eye Contact: Maintains Eye Contact Mood Description: Euthymic/stable Affect description: congruent with mood Speech Volume: Normal Speech pattern: normal rate, normal rhythm, normal tone, fluent Language & Vocabulary: consistent with education Thought Process: Intact, Logical, Linear, Goal Oriented Attention Span Ability: Capable of Focused Attention Memory Description: Grossly Intact Patient Reliability: Reliable Historian Fund of knowledge: Yes abstraction ability Intelligence Estimate: Average Judgment: Good Insight: Full Hospital Course Hospital course: Ms. Barraza is a 53 year old female was admitted after having thoughts of suicide and feeling emotionally unstable, reporting auditory hallucinations. She reports having been stable on medications previous and questioning what changed. She used to take a low dose of an antipsychotic that looks as though it had been discontinued. Dr. Mathias discussed this with her and talked about her depression and potentially starting a low dose of perphenazine to see if it helped with the mood and reported hallucination. Patient was agreeable. Patient did not appear to be responding to IS and showed no overt signs of psychosis to Dr. Mathias. When I saw the patient in follow up, she was experiencing a mild headache, but was other menezes fine. She told me she was feeling a little less anxious and depressed but was still concerned about what caused her instability. I discussed with her the possibility of prednisone causing mood instability. She will re-evaluate its use with her physician. She denied any side effects of the perphenazine and wanted to continue taking it to see if it helped further. Today in follow up, she tells me she slept great last evening and was no longer hearing any voices. Her mood is stable and she denies SI/HI. She denies any mood instability and feels like her old self again. She feels a little tired, which may be from the perphenazine, but states she is able to function and feels she is ready to discharge. She has outpatient appointments set up in the community with her providers and denies any other issues. Does patient wish to continue nicotine replacement upon disc: No (NA) - Time Spent with Patient Total time spent providing and/or coordinating discharge services: 20 min Less than 30 minutes Assessment and Plan - Patient/Caregiver Discharge Instructions Activity: resume usual activities as tolerated Diet: regular diet - Follow up Plan Follow up with: [facility] [Outside] - 12/19/18 3:00 pm (You have an appointment scheduled with Anyi on Wednesday, December 19, 2018 at 3:00 PM for Counseling and Case Management. You have an appointment scheduled for Tuesday, January 01, 2019 at 10:[address] Jesus Rousseau for medication management. Please contact the office at least 24 hours in advance if you are unable to keep your appointment(s). ) Functional capacity at discharge: independent ambulation Overall status at discharge: Stable Disposition: Home, Self-Care Quality - Multiple Antipsychotics Patient discharged on 2 or more antipsychotic medications: No Procedures - Procedures Procedures: Medication Management, Crisis Stabilization, Supportive Therapy
[2018-12-17 10:00] VITALS: BP 124/70
[2018-12-17] MEDS ORDERED: Tiotropium 18 MCG inhalation IH SCH (10:00)
== END 2018-12-17 11:50 | disposition home or self-care (01) | DRG 885 ==
LOC: SUATTDRO 04:00 → 1ANU 04:00 → MERGE 04:00 → 1ANU 12-16 22:06
PROVIDERS: ADMIT Psychiatry & Neurology Psychiatry; ATTEND Psychiatry & Neurology Psychiatry

== ENCOUNTER 2019-07-22 13:18 | Inpatient (IN) ==
[2019-07-22 13:50] LABS: Basophils % 0.4 %; Hematocrit 40.8 % (35.3-44.9); Hemoglobin 13.6 g/dL (11.5-15.4); Immature Granulocytes % 2.1 % (0-4); Lymphocytes # 1.3 K/mcL (0.6-4.6); Lymphocytes % 14.5 %; Mean Corpuscular HGB Conc 33.3 g/dL (31.6-35.5); Mean Corpuscular Hemoglobin 29.5 pg (28.0-33.3); Mean Corpuscular Volume 88.5 fL (83.0-100.0); Mean Platelet Volume 10.7 fL (9.4-12.4); Monocytes # 0.5 K/mcL (0.0-1.3); Monocytes % 5.4 %; Neutrophils # 7.1 K/mcL (1.6-8.9); Platelet Count 243 K/mcL (140-400); Red Blood Count 4.61 M/mcL (3.82-4.97); Red Cell Distribution Width 13.9 % (11.5-14.5); Segmented Neutrophils % 77.6 %; White Blood Count 9.1 K/mcL (4.3-11.1)
[2019-07-22 14:10] LABS: Acetaminophen < 10 mcg/mL (10-20); Alanine Aminotransferase 51 Units/L (7-52); Albumin/Globulin Ratio 1.5 (1.1-2.2); Alkaline Phosphatase 82 Units/L (34-104); Aspartate Amino Transferase 25 Units/L (13-39); BUN/Creatinine Ratio 19 (6-26); Bilirubin,Direct 0.1 mg/dL (0.0-0.2); Bilirubin,Indirect 0.2 mg/dL (0.0-1.0); Bilirubin,Total 0.3 mg/dL (0.3-1.0); Blood Urea Nitrogen 16 mg/dL (6-20); Calcium 8.8 mg/dL (8.6-10.3); Carbon Dioxide 23 mEq/L (23-29); Chloride 105 mEq/L (98-107); Ethanol < 10 mg/dL (Less than 10); Globulin 2.7 g/dL (2.4-3.5); Glucose 137 mg/dL (70-105); Osmolality,Calculated 289 (280-300); Potassium 3.4 mEq/L (3.5-5.1); Salicylate < 2.5 mg/dL (15.0-30.0); Sodium 138 mEq/L (136-145); Total Protein 6.7 g/dL (6.4-8.9); eGFR For African Americans > 60 (> 60); eGFR For Non-African Americans > 60 (> 60)
[2019-07-22 14:32] LABS: Amphetamine Screen,Urine Negative ng/mL (Cutoff=1000); Barbiturate Screen,Urine Negative ng/mL (Cutoff=200); Benzodiazepines Screen,Urine Negative ng/mL (Cutoff=200); Cannabinoid Screen,Urine Negative ng/mL (Cutoff = 50); Cocaine Screen,Urine Negative ng/mL (Cutoff= 300); Opiate Screen,Urine Negative ng/mL (Cutoff=300); Phencyclidine Screen,Urine Negative ng/mL (Cutoff=25)
[2019-07-22] MEDS ORDERED: Naloxone 0.4 MG/ML INJ IVP PRN (16:09)
[2019-07-22] MEDS ORDERED: Ondansetron 4 MG/2 ML VIAL IVP PRN (16:09)
[2019-07-22] MEDS ORDERED: Ipratropium/Albuterol Neb 3 ML IH PRN (16:13)
[2019-07-22] MEDS: *HR* Heparin 5,000 UNIT/ML VIAL SQ SCH (18:22)
[2019-07-22] MEDS: 0.9 % Sodium Chloride 1,000 ML IVC SCH (18:22)
[2019-07-22] MEDS: Ipratropium/Albuterol Neb 3 ML IH SCH (20:58)
[2019-07-23] MEDS: Ipratropium/Albuterol Neb 3 ML IH SCH ×3 (03:55→16:00)
[2019-07-23 06:33] LABS: Basophils % 0.3 %; Hematocrit 37.9 % (35.3-44.9); Immature Granulocytes % 1.6 % (0-4); Lymphocytes # 3.6 K/mcL (0.6-4.6); Lymphocytes % 47.2 %; Mean Corpuscular HGB Conc 31.7 g/dL (31.6-35.5); Mean Corpuscular Hemoglobin 29.5 pg (28.0-33.3); Mean Corpuscular Volume 93.1 fL (83.0-100.0); Mean Platelet Volume 11.2 fL (9.4-12.4); Monocytes # 0.6 K/mcL (0.0-1.3); Monocytes % 7.3 %; Neutrophils # 3.3 K/mcL (1.6-8.9); Platelet Count 218 K/mcL (140-400); Red Blood Count 4.07 M/mcL (3.82-4.97); Segmented Neutrophils % 43.6 %; White Blood Count 7.6 K/mcL (4.3-11.1)
[2019-07-23] MEDS: 0.9 % Sodium Chloride 1,000 ML IVC SCH (06:38)
[2019-07-23] MEDS: *HR* Heparin 5,000 UNIT/ML VIAL SQ SCH (06:39)
[2019-07-23 06:50] VITALS: BP 111/73
[2019-07-23 06:58] LABS: BUN/Creatinine Ratio 14 (6-26); Blood Urea Nitrogen 11 mg/dL (6-20); Calcium 8.4 mg/dL (8.6-10.3); Carbon Dioxide 23 mEq/L (23-29); Chloride 109 mEq/L (98-107); Glucose 89 mg/dL (70-105); Magnesium 2.1 mg/dL (1.6-2.6); Osmolality,Calculated 293 (280-300); Potassium 3.7 mEq/L (3.5-5.1); Sodium 142 mEq/L (136-145); eGFR For African Americans > 60 (> 60); eGFR For Non-African Americans > 60 (> 60)
[2019-07-23] MEDS ORDERED: predniSONE 5 MG TABLET PO SCH (09:00)
[2019-07-23] MEDS: Acetylcysteine 10% 2 ML INHSOL IH SCH ×2 (11:43→16:00)
[2019-07-23] MEDS ORDERED: predniSONE 20 MG TABLET PO SCH (15:35)
[2019-07-24] MEDS ORDERED: predniSONE 5 MG TABLET PO SCH (09:00)
== END 2019-07-23 17:17 | DRG 918 ==
LOC: EMEROOARM 13:18 → 3BNU 13:18
PROVIDERS: ADMIT Internal Medicine; ATTEND Internal Medicine

== ENCOUNTER 2019-07-23 17:26 | Inpatient (IN) ==
[2019-07-23] MEDS ORDERED: Mag Hydrox/Al Hydrox/Simeth 30 ML UDC PO PRN (18:52)
[2019-07-23] MEDS ORDERED: *HR* LORazepam 1 MG TABLET PO PRN (18:52)
[2019-07-23] MEDS ORDERED: MOM Conc 10 ML UD.LIQ PO PRN (18:52)
[2019-07-23] MEDS ORDERED: Haloperidol Lactate 5 MG/ML VIAL IM PRN (18:52)
[2019-07-23] MEDS ORDERED: *HR* LORazepam 2 MG/ML VIAL IM PRN (18:52)
[2019-07-23] MEDS ORDERED: Ibuprofen 400 MG TABLET PO PRN (18:52)
[2019-07-23] MEDS ORDERED: traZODone 50 MG TABLET PO PRN (18:52)
[2019-07-23] MEDS: hydrOXYzine pamoate 25 MG CAPSULE PO PRN (21:13)
[2019-07-24] MEDS ORDERED: Baclofen 10 MG TABLET PO PRN (09:20)
[2019-07-24] MEDS: predniSONE 20 MG TABLET PO SCH (10:14)
[2019-07-24] MEDS: Topiramate 100 MG TABLET PO SCH ×2 (10:14→18:20)
[2019-07-24] MEDS: BuPROPion XL (24 HR) 150 MG TABLET PO SCH (10:15)
[2019-07-24] MEDS: carBAMazepine 200 MG TABLET PO SCH ×2 (10:17→21:42)
[2019-07-24] MEDS: Ipratropium/Albuterol Neb 3 ML IH SCH ×3 (10:28→21:28)
[2019-07-24] MEDS ORDERED: (Loxapine Succinate [Loxapine] 10 MG) PO SCH ×2 (18:00→21:00)
[2019-07-24] MEDS: Venlafaxine XR (24 HR) 150 MG CAP.ER.24H PO SCH (18:20)
[2019-07-24] MEDS: rOPINIRole 1 MG TABLET PO SCH (21:42)
[2019-07-24] MEDS: Gabapentin 300 MG CAPSULE PO SCH (21:43)
[2019-07-24] MEDS: traZODone 50 MG TABLET PO PRN (21:46)
[2019-07-25] MEDS: Ipratropium/Albuterol Neb 3 ML IH SCH ×3 (04:21→15:37)
[2019-07-25] MEDS: hydrOXYzine pamoate 25 MG CAPSULE PO PRN ×2 (04:31→23:16)
[2019-07-25] MEDS: carBAMazepine 200 MG TABLET PO SCH ×2 (11:02→20:37)
[2019-07-25] MEDS: predniSONE 20 MG TABLET PO SCH (11:03)
[2019-07-25] MEDS: BuPROPion XL (24 HR) 150 MG TABLET PO SCH (11:03)
[2019-07-25] MEDS: Topiramate 100 MG TABLET PO SCH ×2 (11:03→17:38)
[2019-07-25] MEDS: Venlafaxine XR (24 HR) 150 MG CAP.ER.24H PO SCH (17:38)
[2019-07-25] MEDS ORDERED: Ipratropium/Albuterol Neb 3 ML IH PRN (20:16)
[2019-07-25] MEDS: rOPINIRole 1 MG TABLET PO SCH (20:36)
[2019-07-25] MEDS: Gabapentin 300 MG CAPSULE PO SCH (20:37)
[2019-07-25] MEDS: traZODone 50 MG TABLET PO PRN (20:37)
[2019-07-25] MEDS ORDERED: LOXAPINE SUCCINATE 20 MG PO SCH (21:00)
[2019-07-26 08:24] VITALS: BP 104/67
[2019-07-26] MEDS: Topiramate 100 MG TABLET PO SCH ×2 (08:58→17:14)
[2019-07-26] MEDS: carBAMazepine 200 MG TABLET PO SCH (08:59)
[2019-07-26] MEDS: BuPROPion XL (24 HR) 150 MG TABLET PO SCH (08:59)
[2019-07-27] MEDS ORDERED: Venlafaxine XR (24 HR) 150 MG CAP.ER.24H PO SCH (09:00)
== END 2019-07-26 18:20 | disposition home or self-care (01) | DRG 885 ==
LOC: 1ANU 17:26
PROVIDERS: ADMIT Psychiatry & Neurology Forensic Psychiatry; ATTEND Psychiatry & Neurology Forensic Psychiatry